=== PATIENT | male | born 2000 | race American Indian/Alaskan Native ===

== ENCOUNTER 2020-10-31 14:27 | Emergency (ER) | payer MEDICAID ==
[2020-10-31 14:47] VITALS: BP 113/72
--- NOTE | 2020-10-31 16:24 | XRay Report ---
CHEST 2 VIEWS INDICATION / CLINICAL INFORMATION: sob, cough, body aches. COMPARISON: None available. FINDINGS: SUPPORT DEVICES: None. HEART / MEDIASTINUM: No significant abnormality. LUNGS / PLEURA: No significant pulmonary or pleural abnormality. No pneumothorax. ADDITIONAL FINDINGS: No significant additional findings. IMPRESSION: 1. No acute findings. Signer Name: Shobha Rutherford MD Signed: 10/31/2020 4:20 PM Workstation Name: [id number]
--- NOTE | 2020-10-31 16:34 | Emergency Department Report ---
- General Chief Complaint: Dyspnea/Respdistress Stated Complaint: SOB/ BACK PAIN Time Seen by Provider: 10/31/20 15:45 Source: patient Mode of arrival: Ambulatory Limitations: No Limitations - History of Present Illness Initial Comments: Patient is a 20-year-old male presents emergency room complaints of generalized body aches that began 3 days ago. He has associated low back discomfort, chills, fatigue, mild dry cough, occasional shortness of breath, mild diarrhea. He denies any fever, nausea, vomiting, chest pain, abdominal pain, urinary symptoms, penile discharge, pain or swelling in the testicles, sore throat, ear pain. He denies any sick contacts or recent travel. Patient states he did at home Covid swab and reports it was negative but he states he believes he did not swab well enough. denies any known sick contacts or recent travel. No past medical history. No allergies to medications. ED Review of Systems ROS: Stated complaint: SOB/ BACK PAIN Other details as noted in HPI Comment: All other systems reviewed and negative ED Past Medical Hx - Past Medical History Previous Medical History?: No - Surgical History Past Surgical History?: No - Social History Smoking Status: Never Smoker Substance Use Type: Alcohol ED Physical Exam - General Limitations: No Limitations General appearance: alert, in no apparent distress - Head Head exam: Present: atraumatic, normocephalic - Eye Eye exam: Present: normal appearance - ENT ENT exam: Present: mucous membranes moist - Respiratory Respiratory exam: Present: normal lung sounds bilaterally. Absent: respiratory distress, wheezes, rales, rhonchi, stridor, chest wall tenderness, accessory muscle use, decreased breath sounds, prolonged expiratory - Cardiovascular Cardiovascular Exam: Present: regular rate, normal rhythm, normal heart sounds. Absent: systolic murmur, diastolic murmur, rubs, gallop - GI/Abdominal GI/Abdominal exam: Present: soft, normal bowel sounds. Absent: distended, tenderness, guarding, rebound, rigid - Back Exam Back exam: Present: normal inspection, full ROM. Absent: CVA tenderness (R), CVA tenderness (L), paraspinal tenderness, vertebral tenderness - Neurological Exam Neurological exam: Present: alert, oriented X3 - Psychiatric Psychiatric exam: Present: normal affect, normal mood - Skin Skin exam: Present: warm, dry, intact ED Course Vital Signs 10/31/20 10/31/20 14:35 17:06 Temperature 98.4 F Pulse Rate 84 84 Respiratory 22 22 Rate Blood Pressure 113/72 O2 Sat by Pulse 99 99 Oximetry ED Medical Decision Making - Radiology Data Radiology results: report reviewed Ordering Physician: NENA CHINCHILLA Date of Service: 10/31/20 Procedure(s): XR chest routine 2V Accession Number(s): [id number] cc: NENA CHINCHILLA Fluoro Time In Minutes: CHEST 2 VIEWS INDICATION / CLINICAL INFORMATION: sob, cough, body aches. COMPARISON: None available. FINDINGS: SUPPORT DEVICES: None. HEART / MEDIASTINUM: No significant abnormality. LUNGS / PLEURA: No significant pulmonary or pleural abnormality. No pneumothorax. ADDITIONAL FINDINGS: No significant additional findings. IMPRESSION: 1. No acute findings. Signer Name: Shobha Rutherford MD Signed: 10/31/2020 4:20 PM Workstation Name: [id number] Transcribed By: DT Dictated By: Inder Rutherford MD Electronically Authenticated By: Inder Rutherford MD Signed Date/Time: 10/31/20 162 DD/ 161 TD/TT: Print - Medical Decision Making Patient is a 20-year-old male presents emergency room complaints of generalized body aches that began 3 days ago. He has associated low back discomfort, chills, fatigue, mild dry cough, occasional shortness of breath, mild diarrhea. He denies any fever, nausea, vomiting, chest pain, abdominal pain, urinary symptoms, penile discharge, pain or swelling in the testicles, sore throat, ear pain. He denies any sick contacts or recent travel. Patient states he did at home Covid swab and reports it was negative but he states he believes he did not swab well enough. denies any known sick contacts or recent travel. No past medical history. No allergies to medications. vitals are normal. No abnormality on physical examination as documented in chart. CXR: 1. No acute findings. Symptoms likely related to viral URI. He has no clinical signs of bacterial bronchitis or bacterial pneumonia. Advised patient May take Tylenol or ibuprofen as needed for discomfort. Increase your fluid intake over the next several days. May take Mucinex or TheraFlu [id number]. Follow-up with your primary care doctor for reexamination. Recommend for you to do outpatient COVID-19 testing and quarantine as necessary. Return to emergency room for new or worse symptoms. discussed strict return precautions. Critical care attestation.: If time is entered above; I have spent that time in minutes in the direct care of this critically ill patient, excluding procedure time. ED Disposition Clinical Impression: Viral URI Disposition: DC-01 TO HOME OR SELFCARE Is pt being admited?: No Does the pt Need Aspirin: No Condition: Stable Instructions: Viral Respiratory Infection Additional Instructions: May take Tylenol or ibuprofen as needed for discomfort. Increase your fluid intake over the next several days. May take Mucinex or TheraFlu [id number]. Follow-up with your primary care doctor for reexamination. Recommend for you to do outpatient COVID-19 testing and quarantine as necessary. Return to emergency room for new or worse symptoms. Referrals: CAIT VAZQUEZ MD [Staff Physician] - 3-5 Days [facility] [Provider Group] - 3-5 Days Time of Disposition: 16:33 Print Language: [id number]
== END 2020-10-31 17:06 | disposition home or self-care (01) ==
LOC: ED 14:27
DX: J06.9 Acute upper respiratory infection, unspecified (principal); B97.89 Other viral agents as the cause of diseases classified elsewhere
CPT/HCPCS: 71046